=== PATIENT | male | born 1945 | race Caucasian/White ===

== ENCOUNTER 2022-12-24 09:27 | Outpatient (CLI) | payer MEDICARE, BC ==
[2022-12-24 11:07] LABS: Hemoglobin 14.4 g/dL (13.5-17.5); Mean Corpuscular HGB CONC 33.5 g/dL (32.0-36.0); Mean Corpuscular Hemoglobin 31.2 pg (27.0-33.0); Mean Corpuscular Volume 93.1 fl (81.2-95.1); Mean Platelet Volume 9.7 fl (7.4-10.4); Platelet Count 239 10x3/uL (150-450); RBC Distribution Width 13.8 % (11.5-14.5); Red Blood Cell (RBC) Count 4.62 10x6/uL (4.32-5.72)
[2022-12-24 11:25] LABS: Anion Gap 11 mmol/L (10-20); BUN (Urea Nitrogen) 18 mg/dL (8.4-25.7); Calc. Creatinine Clearance 0 mL/min (70-130); Calcium 9.1 mg/dL (7.8-10.44); Carbon Dioxide 26 mmol/L (23-31); Chloride 107 mmol/L (98-107); Estimated GFR 71; Glucose 79 mg/dL (83-110); Potassium 4.2 mmol/L (3.5-5.1); Sodium 140 mmol/L (136-145)
== END 2022-12-24 09:28 | disposition home or self-care (01) ==
LOC: CSHLAB 09:27
PROVIDERS: ATTEND Otolaryngology Plastic Surgery within the Head & Neck
DX: Z01.818 Encounter for other preprocedural examination (principal)
CPT/HCPCS: 80048; 85027; 93005; 93010

== ENCOUNTER 2022-12-27 05:58 | Day surgery (SDC) | payer MEDICARE, BC ==
[2022-12-26 08:32] VITALS: BMI 30.8
[2022-12-27] MEDS ORDERED: Methylene Blue 50 MG/10 ML AMPUL ONE (06:43)
[2022-12-27] MEDS ORDERED: EPINEPHrine 1 MG/ML AMP ONE (06:43)
[2022-12-27] MEDS ORDERED: Fentanyl 100 MCG/2 ML VIAL ONE (07:07)
[2022-12-27] MEDS ORDERED: Lidocaine 4% PF 5 ML AMP ONE (07:08)
[2022-12-27] MEDS ORDERED: PROPOFOL 40 ML ONE (07:08)
[2022-12-27] MEDS ORDERED: PHENYLEPHRINE-NS 100 MCG/ML 10 ML SYRINGE ONE (07:08)
[2022-12-27] MEDS ORDERED: Rocuronium Bromide 10 MG/ML (10ML VIAL) ONE (07:08)
[2022-12-27] MEDS ORDERED: Glycopyrrolate 0.2 MG/ML 5 ML SYRINGE ONE (07:08)
[2022-12-27] MEDS ORDERED: Dexamethasone 20 MG/5 ML VIAL ONE (07:08)
[2022-12-27] MEDS ORDERED: Lidocaine 1% PF 5 ML VIAL ONE (07:08)
[2022-12-27] MEDS ORDERED: Ondansetron PF 4 MG/2 ML Vial ONE (07:08)
[2022-12-27] MEDS ORDERED: Phenylephrine 40 MG/NS 250 ML 250 ML ONE (07:13)
[2022-12-27] MEDS ORDERED: CEFAZOLIN 1 GM VIAL ONE (07:22)
[2022-12-27] MEDS ORDERED: ePHEDrine Sulfate 50 MG/10 ML VIAL ONE (07:48)
[2022-12-27] MEDS ORDERED: Lidocaine 1% w/Epinephrine 1:100K 20 ML VIAL ONE (09:12)
[2022-12-27] MEDS ORDERED: PROPOFOL 20 ML ONE (10:12)
== END 2022-12-27 12:00 | disposition home or self-care (01) ==
LOC: CSHSDC 05:58
PROVIDERS: ATTEND Otolaryngology Plastic Surgery within the Head & Neck
PROC: F0BZ09Z Cochlear Implant Rehabilitation Treatment using Cochlear Implant Equipment (ICD-10-PCS; principal; 2022-12-27)
DX: H90.3 Sensorineural hearing loss, bilateral (principal); H61.21 Impacted cerumen, right ear; I25.10 Atherosclerotic heart disease of native coronary artery without angina pectoris; E78.00 Pure hypercholesterolemia, unspecified; I10 Essential (primary) hypertension; I48.91 Unspecified atrial fibrillation; Z95.1 Presence of aortocoronary bypass graft; Z79.01 Long term (current) use of anticoagulants; Z79.82 Long term (current) use of aspirin; Z79.899 Other long term (current) drug therapy
CPT/HCPCS: 69930; 70260; L8614 ×2; Q9968; J0171; J0690; J1100; J2405; J2704; J3010